=== PATIENT | male | born 1985 | race Hispanic/Latino ===

== ENCOUNTER 2018-08-30 18:36 | Emergency (ER) | payer BC ==
[~2018-08-30] VITALS: Ht 167.6 cm; Wt 89.0 kg
[~2018-08-30 18:36] MED LIST: GABAPENTIN300 M2 PO; RISPERDAL1 M1 PO
[2018-08-30] MEDS ORDERED: AMOXICILLIN500 M2 PO (19:20)
[2018-08-30] MEDS ORDERED: TRAMADOL HCL50 MG PO (19:20)
[2018-08-30] MEDS ORDERED: MOTRIN800 MG PO (19:20)
[2018-08-30 19:35] VITALS: BP 183/99
== END 2018-08-30 19:35 | disposition home or self-care (01) | DRG 158 ==
LOC: ED 18:36
DX: K04.7 Periapical abscess without sinus (principal); M84.48XA Pathological fracture, other site, initial encounter for fracture; F17.210 Nicotine dependence, cigarettes, uncomplicated

== ENCOUNTER 2018-10-16 13:48 | Emergency (ER) | payer OTHER ==
[~2018-10-16] VITALS: Ht 167.6 cm; Wt 88.6 kg
[~2018-10-16 13:48] MED LIST changes: +AMOXICILLIN500 M2 PO; +MOTRIN800 MG PO; +TRAMADOL HCL50 MG PO
[2018-10-16 15:00] VITALS: BP 143/87
== END 2018-10-16 15:00 | disposition home or self-care (01) | DRG 605 ==
LOC: ED 13:48
PROC: 2W3CX1Z Immobilization of Right Lower Arm using Splint (ICD-10-PCS; principal; 2018-10-16)
DX: S60.221A Contusion of right hand, initial encounter (principal); F17.210 Nicotine dependence, cigarettes, uncomplicated; W22.8XXA Striking against or struck by other objects, initial encounter; Y93.89 Activity, other specified; Y92.89 Other specified places as the place of occurrence of the external cause; Y99.0 Civilian activity done for income or pay

== ENCOUNTER 2019-08-05 11:44 | Emergency (ER) | payer OTHER ==
[~2019-08-05] VITALS: Ht 167.6 cm; Wt 100.0 kg
[2019-08-05] MEDS ORDERED: GABAPENTIN300 M2 PO (12:58)
[2019-08-05] MEDS ORDERED: MEDDOSEPAK PO (13:27)
[2019-08-05 13:34] VITALS: BP 137/84
== END 2019-08-05 13:35 | disposition home or self-care (01) | DRG 93 ==
LOC: ED 11:44
DX: G89.29 Other chronic pain (principal); M54.5 Low back pain

== ENCOUNTER 2019-12-09 | Emergency (ER) | payer SELFPAY ==
[~2019-12-09] MED LIST changes: +MEDDOSEPAK PO
[2019-12-09] MEDS ORDERED: CLINDAMYCIN300 M1 PO (10:03)
[2019-12-09] MEDS ORDERED: HYDROCO/APAP1 TA9 PO (18:36)
== END 2019-12-09 10:14 | disposition home or self-care (01) | DRG 159 ==
DX: K03.81 Cracked tooth (principal); K08.89 Other specified disorders of teeth and supporting structures; K04.7 Periapical abscess without sinus

== ENCOUNTER 2019-12-09 | Emergency (ER) | payer SELFPAY ==
[2019-12-09] MEDS ORDERED: CLINDAMYCIN300 M1 PO (10:03)
[2019-12-09] MEDS ORDERED: HYDROCO/APAP1 TA9 PO (18:36)
== END 2019-12-09 19:40 | disposition home or self-care (01) | DRG 159 ==
DX: K04.7 Periapical abscess without sinus (principal)

== ENCOUNTER 2022-11-22 08:19 | Emergency (ER) | payer OTHER ==
[2022-11-22] VITALS (14 sets, daily range): BP systolic 122–171; BP diastolic 75–103
[~2022-11-22] VITALS: Ht 167.6 cm; Wt 87.7 kg
[~2022-11-22 08:19] MED LIST changes: +CLINDAMYCIN300 M1 PO; +HYDROCO/APAP1 TA9 PO
[2022-11-22 08:55] LABS: BASO% 0.3 % (0-3); HEMATOCRIT 43.8 % (39.0-50.0); HEMOGLOBIN 14.7 g/dl (14.0-18.0); LYMPH% 15.2 % (15-41); MEAN CELL VOLUME 90.5 fL CALC (80.0-100.0); MEAN CORPUSCULAR HGB 30.4 pG CALC (26.0-32.0); MEAN CORPUSCULAR HGB CONC 33.6 g/dL CAL (32.0-36.0); MONO% 8.6 % (2-13); NEUT# 4.59 thou/uL (1.82-7.42); NEUT% 72.9 % (42-76); RED BLOOD COUNT 4.84 mill/uL (4.70-6.10); RED CELL DISTRI WIDTH 11.7 % (11.5-15.5)
[2022-11-22 08:59] LABS: ALBUMIN 4.8 g/dL (3.2-5.0); ALKALINE PHOSPHATASE 67 u/l (38-126); ANION GAP 11 (6-22 (CALC)); BILIRUBIN, TOTAL 0.5 mg/dL (0.2-1.3); BUN 15 mg/dL (9-20); BUN/CREATININE RATIO 24 (12-20 (CALC)); CARBON DIOXIDE 25 mmol/l (22-30); CHLORIDE 107 mmol/l (95-108); CREATININE 0.6 mg/dL (0.7-1.3); GFR FOR AFR.AMER. > 60 ML/MIN (>=60 (CALC)); GFR OTHER RACES > 60 ML/MIN (>=60 (CALC)); POTASSIUM 4.6 mmol/l (3.5-5.1); SGOT/AST 34 u/l (17-59); SODIUM 139 mmol/l (137-146); TOTAL PROTEIN 7.4 g/dL (6.3-8.2)
== END 2022-11-22 12:17 | disposition home or self-care (01) | DRG 313 ==
LOC: ED 08:19
PROVIDERS: Family Medicine
DX: R07.9 Chest pain, unspecified (principal); F43.10 Post-traumatic stress disorder, unspecified